=== PATIENT | female | born 1950 | race African-American/Black ===

== ENCOUNTER 2018-03-26 20:34 | Emergency (ER) | payer MEDICARE ==
[~2018-03-26] VITALS: Ht 165.1 cm; Wt 68.0 kg
[2018-03-26] MEDS ORDERED: HYDROCODONE/ACETAMINOPHEN 5/325MG TABLET PO ONE (23:15)
[2018-03-27 02:52] VITALS: BP 149/80
== END 2018-03-27 03:14 | disposition home or self-care (01) ==
LOC: ER 23:05
DX: S62.002A Unspecified fracture of navicular [scaphoid] bone of left wrist, initial encounter for closed fracture (principal); M25.512 Pain in left shoulder; M79.602 Pain in left arm; F17.200 Nicotine dependence, unspecified, uncomplicated; W01.0XXA Fall on same level from slipping, tripping and stumbling without subsequent striking against object, initial encounter; Y93.89 Activity, other specified; Y92.89 Other specified places as the place of occurrence of the external cause
CPT/HCPCS: 29125; 73030; 73060; 73090; 73130; 99284; A4565

== ENCOUNTER 2018-09-12 08:14 | Emergency (ER) | payer MEDICARE ==
[~2018-09-12] VITALS: Ht 165.1 cm; Wt 69.0 kg
[2018-09-12] MEDS ORDERED: ALBUTEROL (0.083%) 2.5MG/3ML NEB HHN STA (08:42)
[2018-09-12 10:15] VITALS: BP 135/76
== END 2018-09-12 10:25 | disposition home or self-care (01) ==
LOC: ER 08:14
DX: R06.02 Shortness of breath (principal); R05 Cough
CPT/HCPCS: 71045; 94640; 99283; J7611

== ENCOUNTER 2020-10-22 09:35 | Emergency (ER) | payer MEDICARE ==
[~2020-10-22] VITALS: Ht 165.1 cm; Wt 72.0 kg
[2020-10-22 09:47] VITALS: BP 211/105
[2020-10-22] MEDS ORDERED: ACETAMINOPHEN 325MG TABLET PO ONE (10:15)
== END 2020-10-22 12:10 | disposition home or self-care (01) ==
LOC: ER 09:35
DX: M79.661 Pain in right lower leg (principal); I10 Essential (primary) hypertension
CPT/HCPCS: 93971; 99284